=== PATIENT | male | born 1945 | race Caucasian/White ===

== ENCOUNTER → 2017-03-24 | Emergency (ER) | payer SELFPAY ==
[~2017-03-24] VITALS: Ht 182.9 cm; Wt 97.5 kg
[2017-03-24 17:12] VITALS: BP 160/81
--- NOTE | 2017-03-24 19:58 | Emergency Room Report ---
History of Present Illness General Chief Complaint: Back Pain-No Injury Source: Patient Present Illness Allergies: Coded Allergies: No Known Allergies (Unverified , 03/24/17) Nursing Documentation-[facility] Past Medical History: No History, Except For Hx Hypertension: Yes Hx Diabetes: Yes Physical Exam Vital Signs Date Time Temp Pulse Resp B/P Pulse Ox O2 Delivery O2 Flow Rate FiO2 03/24/17 17:12 98.2 76 20 160/81 99 Room Air Medical Decision Making Diagnostic Impression: Primary Impression: BACK PAIN Last Vital Signs Date Time Temp Pulse Resp B/P Pulse Ox O2 Delivery O2 Flow Rate FiO2 03/24/17 17:12 98.2 76 20 160/81 99 Room Air Disposition: LEFT W/OUT BEING SEEN Condition: Unknown Referrals: NON PHYSICIAN (PCP) SY ROE M.D. Mar 24, 2017 19:58
== END | disposition left against medical advice (07) ==
LOC: EMR 17:10
DX: M54.9 Dorsalgia, unspecified (principal); I10 Essential (primary) hypertension; E11.9 Type 2 diabetes mellitus without complications
CPT/HCPCS: 99281